=== PATIENT | male | born 1970 | race Caucasian/White ===

== ENCOUNTER 2016-10-25 19:44 | Emergency (ER) | payer OTHER ==
[2016-10-25] MEDS ORDERED: Hydromorphone 1 mg/ml Ampule IV ONE (20:13)
[2016-10-25] MEDS ORDERED: Phenergan 25 MG INJ IV ONE (20:13)
[2016-10-25] MEDS ORDERED: Sodium Chloride 0.9% 1000 ML 1,000 ML IV SCH (20:15)
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
[2016-10-25] MEDS ORDERED: Phenergan 25 MG INJ ONE (20:29)
[2016-10-25] MEDS ORDERED: Hydromorphone 1 mg/ml Ampule ONE (20:29)
[2016-10-25] MEDS ORDERED: Sodium Chloride 0.9% 1000 ML 1,000 ML ONE (20:30)
[2016-10-25 20:41] LABS: Mean Cell Volume 93.6 fl (78-100); Mean Corpuscular Hemoglobin 30.7 pg (26-32); Mean Platelet Volume 10.8 fl (6-9.5); Platelet Count 146 K/mm3 (150-450); Red Blood Count 4.37 M/mm3 (4.1-5.6); White Blood Count 7.7 K/mm3 (4.0-10.5)
[2016-10-25 20:45] LABS: Collection Type CLEAN CATCH
[2016-10-25 20:46] LABS: COMPLETE URINE MICROSCOPIC? NO
[2016-10-25 21:05] LABS: ALBUMIN 3.9 g/dL (3.4-5.0); ALKALINE PHOSPHATASE 96 U/L (46-116); ANION GAP 13.5 MEQ/L (5-15); BILIRUBIN,TOTAL 0.3 mg/dL (0.2-1.0); BLOOD UREA NITROGEN 24 mg/dL (9-20); CHLORIDE 106 mEq/L (98-107); Carbon Dioxide 27.1 mEq/L (21-32); Glucose 109 MG/DL (70-110); LIPASE 150 U/L (73-393); Potassium 3.8 mEq/L (3.5-5.1); SGOT/AST 38 U/L (15-37); SGPT/ALT 56 U/L (12-78); SODIUM 143 mEq/L (136-145); Total Protein 7.3 gm/dL (6.4-8.2)
[2016-10-25 21:49] LABS: ATYPICAL LYMPHS 3 %; BAND 1 % (0.0-2.0); Eosinophil 1 % (0.00-3.0); Platelet Estimate NORMAL (NORMAL); Total Cells Counted 100
[2016-10-25 21:50] LABS: Poikilocytosis 1+
[2016-10-25 21:51] LABS: Ovalocytes 1+
[2016-10-25] MEDS ORDERED: Sodium Chloride 0.9% 1000 ML 1,000 ML IV STA (21:51)
[2016-10-25] MEDS ORDERED: MAG-OX 400 ONE (21:56)
[2016-10-25] MEDS ORDERED: Sodium Chloride 0.9% 1000 ML 0 ML ONE (21:56)
[2016-10-25] MEDS ORDERED: MAG-OX 400 PO SCH (22:00)
[2016-10-25 22:06] VITALS: BP 115/79; PULSE 56; O2SAT 98
--- NOTE | 2016-10-26 08:54 | XRAY ---
Indication: Left lower quadrant and left flank pain. Nausea and vomiting. History of stones. Multiple contiguous axial images obtained through the abdomen and pelvis without contrast using renal stone protocol. Comparison: December 31, 2015. Lung bases demonstrates minimal bibasilar dependent atelectasis. No infiltrate, consolidation, or effusion. Heart is not enlarged. Stable nonobstructing punctate left renal calculus. No new renal calculus or evidence for obstructive uropathy in either system. Noncontrasted stomach and bowel loops appear nonobstructed. Again minimal sigmoid diverticulosis without diverticulitis. Stable rectal post surgical changes with intact anastomosis. New appendicolith without features for appendicitis. No free fluid/air. Stable caudate lobe hepatic cyst. Remaining liver, gallbladder, pancreas, spleen, adrenal glands, kidneys, ureters, and bladder appear unremarkable for noncontrast exam. Osseous structures intact. Impression: 1. Stable nonobstructing punctate left renal calculus, hepatic cyst, and sigmoid diverticulosis. 2. No new/acute intra-abdominal/pelvic abnormalities on this noncontrast exam. Comment: Preliminary interpretation was made by [facility]. Left renal calculus and hepatic cysts not reported and are not critical findings. CT DI 23.04
[2016-11-02] MEDS ORDERED: ULTRAM 50 MG PO ONE ×2 (02:01→02:02)
== END 2016-10-25 22:17 | disposition home or self-care (01) ==
LOC: ED 19:44
DX: R10.32 Left lower quadrant pain (principal); R10.9 Unspecified abdominal pain; I25.10 Atherosclerotic heart disease of native coronary artery without angina pectoris; E78.00 Pure hypercholesterolemia, unspecified; I10 Essential (primary) hypertension
CPT/HCPCS: 36000; 36415; 74176; 80053; 80307; 81002; 82150; 83690; 83735; 85025; 96360; 96374; 96375; 99283; 99284; 99285; J1170; J2550

== ENCOUNTER 2017-05-25 12:50 | Emergency (ER) | payer SELFPAY ==
[2017-05-25 13:08] VITALS: PULSE 78
[2017-05-25] MEDS ORDERED: NORCO 5/325 MG PO ONE (13:14)
[2017-05-25] MEDS ORDERED: NORCO 5/325 MG ONE (13:19)
--- NOTE | 2017-05-25 13:34 | XRAY ---
Indication: Fourth MCP pain following injury. Comparison: July 07, 2015. 3 views of the right hand demonstrates old distal fifth metacarpal fracture. No other bony, articular, or soft tissue abnormalities.
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
[2017-05-25 13:54] VITALS: BP 164/98; O2SAT 98
== END 2017-05-25 13:54 | disposition home or self-care (01) ==
LOC: ED 12:50
DX: S60.221A Contusion of right hand, initial encounter (principal); W22.8XXA Striking against or struck by other objects, initial encounter
CPT/HCPCS: 73130; 99283; A9270-GY

== ENCOUNTER 2019-06-03 15:41 | Emergency (ER) | payer MEDICAID ==
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
[2019-06-03] MEDS ORDERED: Norco 10/325 MG Tablet PO ONE (16:29)
[2019-06-03] MEDS ORDERED: Norco 10/325 MG Tablet ONE (16:36)
--- NOTE | 2019-06-03 17:59 | XRAY ---
Exam: CT of the cervical spine without IV contrast from 06/03/2019. CTDI: 54.34 mGy Comparison: None. Indication: Neck pain, no known injury, pain radiating down right side of neck, cervical pain and radiculopathy. Technique: Non-IV contrast axial images were obtained through the cervical spine. Reconstructed coronal and sagittal images were created and reviewed. Findings: I see no acute cervical spine fracture, AP subluxation, or prevertebral soft tissue swelling. Mild degenerative changes are seen at the preodontoid space. There is some straightening of the cervical spine with slight reversal of the normal lordosis centered at C5. Consider spasm. Minimal anterior vertebral endplate spurs are seen at C3-C4 and C4-C5. There is also a separate small oval calcification at the anterior margin of the C3-C4 interspace. There is mild narrowing of the C5-C6 and C6-C7 interspace heights. Mild adjacent subchondral cyst formation is seen at the level of the vertebral endplates at C5-C6 and the posterior aspect of C6-C7. I also note mild anterior and minimal posterior vertebral endplate spurring at both C5-C6 and C6-C7. These findings are consistent with degenerative disc disease. There is also moderate degenerative change of the C5-C6 and C6-C7 uncovertebral joints bilaterally. At C2-C3, I see no evidence of spinal stenosis or disc herniation. The neural foramen are widely patent bilaterally. There is minimal facet joint spurring on the right at C2-C3. At C3-C4, the disc and thecal sac appear unremarkable. The left neural foramen appears open. There is minimal narrowing of the right neural foramen on axial image #34. At C4-C5, there is a suggestion of a minimal posterior midline disc bulge on axial image #41. There is no spinal stenosis. The neural foramen are patent bilaterally. At C5-C6, I again see evidence of mild degenerative disc disease with mild diffuse posterior bulging of the C5-C6 disc. AP diameter of the thecal sac in the midline is about 9 mm. Posterior vertebral endplate spurring and uncovertebral joint spurring causes mild compromise of the right neural foramen and minimal compromise of the left neural foramen. At C6-C7, I again see mild degenerative disc disease and mild diffuse posterior bulging of the disc. The AP dimension of the spinal sac in the midline measures about 9 mm. No definite focal disc herniation is seen. There is moderate compromise of the right neural foramen and minimal compromise of the left neural foramen. At C7-T1, the disc and thecal sac appear unremarkable. The left neural foramen appears patent. There is moderate to marked narrowing of the right neural foramen. Moderate facet joint osteoarthritis is seen on the right at C7-T1. The visualized lung apices appear unremarkable. The thyroid gland appears grossly unremarkable. The soft tissues reveal no abnormal cervical lymphadenopathy. I partially see a convex soft tissue density within the lower posterior right maxillary sinus which may represent a retention cyst or polyp. Minimal mucosal thickening is seen at the anterior lateral aspect of the sphenoid sinus on each side of midline. Impression: 1. No acute cervical spine fracture, AP subluxation, or prevertebral soft tissue swelling is seen. 2. There is some straightening of the cervical spine with slight reversal of normal cervical lordosis centered at C5. Correlate clinically regarding paravertebral muscular spasm. 3. Mild degenerative disc disease is seen at both C5-C6 and C6-C7. I also note moderate uncovertebral joint osteoarthritis at both C5-C6 and C6-C7 bilaterally. The facet joints reveal moderate osteoarthritis at C7-T1 on the right. There is also minimal degenerative change of the right C2-C3 facet joint. The remainder the facet joints appears unremarkable. 4. I believe there is a minimal posterior midline disc bulge at C4-C5. 5. There is some flattening of the anterior margin of the spinal sac at both C5-C6 and C6-C7 with the AP diameter of the spinal sac measuring about 9 mm at each level in the midline. This suggests a minimal cervical stenosis. 6. I note some scattered neural foraminal narrowing. This appears most pronounced on the right at both C6-C7 and C7-T1, as discussed above. Other less pronounced cervical neural foraminal narrowing is seen, as discussed above.
[2019-06-03 18:02] VITALS: BP 106/65; PULSE 63; O2SAT 98
== END 2019-06-03 18:41 | disposition home or self-care (01) ==
LOC: ED 15:41
DX: M46.92 Unspecified inflammatory spondylopathy, cervical region (principal)
CPT/HCPCS: 72125; 99284; A9270-GY

== ENCOUNTER 2023-06-18 17:37 | Emergency (ER) | payer MEDICAID ==
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
== END 2023-06-18 18:00 | disposition left against medical advice (07) ==
LOC: ED 17:37
DX: Z53.21 Procedure and treatment not carried out due to patient leaving prior to being seen by health care provider (principal)
CPT/HCPCS: 99281